=== PATIENT | female | born 1975 ===

== ENCOUNTER 2025-03-06 09:38 | Emergency (ER) | payer OTHER, SELFPAY ==
[2025-03-06 10:09] LABS: Absolute Lymphocytes (CBC) 1.2 K/uL (0.7-4.9); Hematocrit 36.7 % (36.0-45.0); Hemoglobin 12.4 g/dL (12.0-15.0); MCH 31.4 pg (27.0-35.0); MCHC 33.8 g/dL (32.0-36.0); MCV 92.9 fL (80-100); MPV 9.4 fL (7.6-11.3); Nucleated RBC Absolute Count 0.0 (0-0); Nucleated Red Blood Cells % 0.0 % (0-0); RBC Red Blood Cell Count 3.95 M/uL (3.86-4.86); White Blood Count 6.40 thou/uL (4.3-10.9)
[2025-03-06] MEDS ORDERED: NA CHLORIDE 0.9% 1,000 ML ONE (10:23)
[2025-03-06] MEDS ORDERED: KETOROLAC 30 MG/ML INJ ONE (10:27)
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
[2025-03-06 10:30] LABS: Anion Gap 7.3 mEq/L (5.0-15.0); BUN Blood Urea Nitrogen 12.0 mg/dL (7-18); Glucose Level 113.0 mg/dL (74-106); Potassium 4.3 mEq/L (3.5-5.1)
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
[2025-03-06] MEDS ORDERED: ONDANSETRON 4 MG/2 ML VIAL ONE (11:09)
[2025-03-06] MEDS ORDERED: HYDROCODONE/APAP 5/325 MG TAB ONE (11:09)
[2025-03-06 12:23] VITALS: O2SAT 100
[2025-03-06 12:25] VITALS: TEMP 98.7
[2025-03-06 12:26] VITALS: BP 92/73
== END 2025-03-06 11:57 | disposition home or self-care (01) ==
LOC: ER 09:38
DX: S32.010A Wedge compression fracture of first lumbar vertebra, initial encounter for closed fracture (principal); V43.12XA Car passenger injured in collision with other type car in nontraffic accident, initial encounter; Y93.89 Activity, other specified; Y92.410 Unspecified street and highway as the place of occurrence of the external cause; Z80.0 Family history of malignant neoplasm of digestive organs
CPT/HCPCS: 96361; 85025; 80048; 36415; 84703; 70450; 71250; 72125; 74176; 96375; 96374; 99285; J2405; J7030